=== PATIENT | female | born 1955 | race Caucasian/White ===

== ENCOUNTER → 2019-06-10 | Outpatient (CLI) | payer OTHER | LOC: MC.RAD 09:26 | DX: Z12.31 Encounter for screening mammogram for malignant neoplasm of breast (principal) ==

== ENCOUNTER → 2020-06-12 | Outpatient (CLI) | payer SELFPAY | LOC: MC.RAD 09:56 | DX: Z12.31 Encounter for screening mammogram for malignant neoplasm of breast (principal) ==